=== PATIENT | male | born 1965 | race Caucasian/White ===

== ENCOUNTER 2016-08-19 18:48 | Emergency (ER) | payer SELFPAY ==
[2016-08-19 18:53] VITALS: BP 147/85; BMI 31.8
--- NOTE | 2016-08-19 20:26 | DR.CP ---
HPI - Time Seen Time seen: 20:17 - PCP Primary Care Physician: PAMELA LEAL - Complaint Chief Complaint Doctor Comments: Patient is complaining of xiphoid chest pain for the past three days that comes and goes. He thought he was having an anxiety attack so he took Clonazepam 0.5mg but it did not do anything so he took another pill an hour later and it seem to help. States he has a brain tumor that was discovered about a year ago and he was waiting to have brain surgery at [place] when he started having right leg pain and they found out that he had a blood clot in his right leg. States he is taking Eliquis 5mg po bid. He denies tobacco, alcohol or drug usage. He has had periods of nausea and states he has diarrhea all the time since the took out his gall bladder. He has had decreased appetite. He denies nausea or vomiting. Chief Complaint:: MID STERNAL CHEST PAIN COMES AND GOES WITH NAUSEA, NO RADIATION OF PAIN FOR THE LAST 3 DAYS. SEEN PAMELA ON SUNDAY, PT STATES HE HAS BEEN LOOSING WT (50 LBS) AND IS NOT TRYING. CHEST SORENESS WITH PALPITATING. - Reviewed Nurses Notes Review: Yes - Source History Provided: Patient - Mode of Arrival Mode of Arrival: Ambulatory - Timing Onset of Chief Complaint: 08/16/16 Came on: Gradually Pain: Present Now - Duration Duration: Intermittent How lon Duration: Days - Location Location of Chest Pain: Chest Chest Pain Radiation Location: None - Context Onset: At rest Cardiac Risk Factors: HTN PE Risk Factors: None History of: None Prehospital Care: None - Quality Quality: Sharp, Squeezing - Severity Severity: Mild - Associated Signs and Symptoms Associated Signs and Symptoms: Nausea/Vomiting PMH - PMH Past Medical History: Yes Past Medical History: Anxiety, Diabetes, Hypertension, Hypothyroidism Past Surgical History: Yes Surgical History: Abdominal Surgery, Cholecystectomy, Thyroidectomy, Other Past Surgical History Comment: BRAIN TUMOR. BLOOD CLOTS - Family History History of Family Medical Conditions: Yes Family Medical History: Diabetes Mellitus, Cancer, [place], Coronary Artery Disease, Heart Failure, Sudden Cardiac , Hypertension - Social History Does patient currently use any type of tobacco product: No Have you used tobacco products in the last 12 months: No Type of Tobacco Use: None Alcohol Use: None Do you use any recreational Drugs:: No Lives Where: Home - infectious screening Have you traveled outside the country in the last 6 months?: No Isolation: Standard ROS - Review of Systems Constitutional: No Symptoms Reported, Fatigue, Loss of Appetite. negative: See HPI, Chills, Diaphoresis, Fever, Malaise, Weakness, Irritable, Other Eyes: negative: No Symptoms Reported, See HPI, Eye Pain, Blurred Vision, Tearing , Discharge, Photophobia, Diplopia, Other ENTM: negative: No Symptoms Reported, See HPI, Ear Pain, Ear Discharge, Pulling on Ears, Hearing Loss, Nose Pain, Nose Discharge, Epistaxis, Nose Congestion, Mouth Pain, Mouth Swelling, Loose Teeth, Drooling, Throat Pain, Throat Swelling , Ear Foreign Body Respiratoy: negative: No Symptoms Reported, See HPI, Productive Cough, Non- Productive Cough, Moist Cough, Dry Cough, Hacking Cough, Barking Cough, Brassy Cough, Orthopnea, Short of Breath, Stridor, Wheezing, Hemoptysis, Other Cardiovascular: Chest Pain, Palpitations. negative: No Symptoms Reported, See HPI, Edema, Syncope, Cyanosis, Skin Mottling, Other Gastrointestinal/Abdominal: No Symptoms Reported, Nausea, Vomiting Genitourinary: No Symptoms Reported. negative: See HPI, Discharge, Dysuria, Frequency, Hematuria, Pain, Bleeding, Other Neurological: No Symptoms Reported, Emotional Problems. negative: Depressed Musculoskeletal: No Symptoms Reported Integumentary: No Symptoms Reported Hematologic/Lymphatic: No Symptoms Reported Endocrine: No Symptoms Reported, Intolerance to Cold, Decreased Appetite Psychiatric: No Symptoms Reported, Anxiety PE - Vitals Vitals: Temperature 98.2 F Pulse Rate 87 Respiratory Rate 16 Blood Pressure [Right Arm] 133/85 Blood Pressure 147/85 O2 Sat by Pulse Oximetry 96 ROR - Labs Reviewed Laboratory Results Reviewed?: Yes (All labs and x-ray results reviewed and discussed with patient) Result Diagrams: 08/19/16 20:30 08/19/16 20:30 Laboratory: WBC 6.2 X10^3/uL (3.6-10.0) 08/19/16 20:30 RBC 4.76 X10^6/uL (4.7-6.0) 08/19/16 20:30 Hgb 13.4 g/dL (13.5-18.0) L 08/19/16 20:30 Hct 38.7 % (42.0-54.0) L 08/19/16 20:30 MCV 81.3 fL (80.0-100.0) 08/19/16 20: MCH 28.2 pg (27.0-34.0) 08/19/16 20: MCHC 34.7 g/dL (33.0-35.0) 08/19/16 20: RDW 13.5 % (11.6-16.5) 08/19/16 20: Plt Count 191 X10^3/uL (150.0-450.0) 08/19/16 20: MPV 7.3 fL (7.4-11.0) L 08/19/16 20: Neut % 63.3 % (42.0-75.0) 08/19/16: Lymph % 27.1 % (21.0-51.0) 08/19/16 20: [place] % 6.7 % (0.0-13.0) 08/19/16 20: Eos % 1.7 % (0.9-2.9) 08/19/16 20: Baso % 1.2 % (0.2-1.0) H 08/19/16 20: Neut # 4.0 x10^3/uL (2.2-4.8) 08/19/16 20: Lymph # 1.7 X10^3/uL (1.3-2.9) 08/19/16 20:30 [place] # 0.4 x10^3/uL (0.3-0.8) 08/19/16 20: Eos # 0.1 x10^3/uL (0.0-0.2) 08/19/16 20: Baso # 0.1 X10^3/uL (0.0-0.1) 08/19/16 20: Absolute Nucleated RBC 0.0 /100WBC 08/19/16 20: INR Target Range - 08/19/16 20: INR 1.11 (0.8-1.3) 08/19/16 20:30 PTT 28.9 SECONDS (22.9-36.5) 08/19/16 20: PTT Comment - 08/19/16 20: Sodium 142 mmol/L (136-145) 08/19/16 20:30 Corrected Sodium TNP 08/19/16 20:30 Potassium 3.5 mmol/L (3.5-5.1) 08/19/16 20:30 Chloride 108 mmol/L (98-107) H 08/19/16 20:30 Carbon Dioxide 25.7 mmol/L (21-32) 08/19/16 20:30 BUN 15 mg/dL (7-18) 08/19/16 20:30 Creatinine 1.26 mg/dL (0.70-1.30) 08/19/16 20:30 Est GFR (MDRD) Af Amer > 60 (>60) 08/19/16 20:30 Est GFR (MDRD) Non-Af > 60 (>60) 08/19/16 20:30 Glucose 100 mg/dL (65-99) H 08/19/16 20:30 Calcium 8.7 mg/dL (8.5-10.1) 08/19/16 20:30 Corrected Calcium TNP 08/19/16 20:30 Magnesium 2.0 mg/dL (1.7-2.9) 08/19/16 20:30 Total Bilirubin 0.40 mg/dL (0.2-1.0) 08/19/16 20:30 AST 30 Units/L (15-37) 08/19/16 20:30 ALT 65 Units/L (12-78) 08/19/16 20:30 Alkaline Phosphatase 104 Units/L (46-116) 08/19/16 20:30 Creatine Kinase 124 Units/L (39-308) 08/19/16 20:30 CK-MB (CK-2) < 1.0 ng/mL (0-4.0) 08/19/16 20:30 CK/CKMB % Calc 0.8 % (<4) 08/19/16 20:30 Troponin I < 0.02 ng/mL (0-1.5) 08/19/16 20:30 Total Protein 7.1 g/dL (6.4-8.2) 08/19/16 20:30 Albumin 3.6 g/dL (3.4-5.0) 08/19/16 20:30 Globulin 3.5 g/dL (2.5-4.5) 08/19/16 20:30 Albumin/Globulin Ratio 1.0 Ratio (1.1-2.1) L 08/19/16 20:30 H. pylori IgG Antibody Positive (NEGATIVE) A 08/19/16 20:30 - XRAY XRAY Interpreted by: Radiologist (CXR: Old right rib fracture 3 and 4th ribs. No acuate abnormality.) - EKG Rate: 75 [place]: Normal Rhythm: NSR Block: None Hypertrophy: None ST: Nonsp - Diagnosis Discharge Problem: Helicobacter positive gastritis, COPD (chronic obstructive pulmonary disease), old rib fracture 3 and 4 right Chest pain Qualifiers: Chest pain type: unspecified Qualified Code(s): R07.9 - Chest pain, unspecified - Discharge Plan Disposition: HOME, SELF-CARE Condition: Stable Prescriptions: Bismuth Subsalicylate [Pepto-Bismol] 524 mg PO QID PRN 14 Days PRN Reason: Metronidazole [FLAGYL 250 MG *] 250 mg PO TID PRN #42 tab PRN Reason: Ranitidine HCl [ZANTAC TAB 150 MG *] 150 mg PO BID #60 tab Tetracycline HCl 500 mg PO BID PRN #28 capsule PRN Reason: - Follow ups/Referrals Follow ups/Referrals: PAMELA LEAL [Primary Care Provider] - 3 days - Instructions Instructions: Nonspecific Chest Pain, Gastritis, Adult, Helicobacter Pylori Antibodies Test, Rib Fracture, [id number]
[2016-08-19 20:37] LABS: BASOPHILS # (AUTO) 0.1 X10^3/uL (0.0-0.1); BASOPHILS % (AUTO) 1.2 % (0.2-1.0); EOSINOPHILS # (AUTO) 0.1 x10^3/uL (0.0-0.2); EOSINOPHILS % (AUTO) 1.7 % (0.9-2.9); HEMATOCRIT 38.7 % (42.0-54.0); HEMOGLOBIN 13.4 g/dL (13.5-18.0); LYMPHOCYTES # (AUTO) 1.7 X10^3/uL (1.3-2.9); LYMPHOCYTES % (AUTO) 27.1 % (21.0-51.0); MEAN CORPUSCULAR HEMOGLOBIN 28.2 pg (27.0-34.0); MEAN CORPUSCULAR HGB CONC 34.7 g/dL (33.0-35.0); MEAN CORPUSCULAR VOLUME 81.3 fL (80.0-100.0); MEAN PLATELET VOLUME 7.3 fL (7.4-11.0); MONOCYTES # (AUTO) 0.4 x10^3/uL (0.3-0.8); MONOCYTES % (AUTO) 6.7 % (0.0-13.0); NEUTROPHILS % (AUTO) 63.3 % (42.0-75.0); PLATELET COUNT 191 X10^3/uL (150.0-450.0); RED BLOOD COUNT 4.76 X10^6/uL (4.7-6.0); RED CELL DISTRIBUTION WIDTH 13.5 % (11.6-16.5); WHITE BLOOD COUNT 6.2 X10^3/uL (3.6-10.0)
[2016-08-19 20:54] LABS: BLOOD UREA NITROGEN 15 mg/dL (7-18); CALCIUM 8.7 mg/dL (8.5-10.1); CARBON DIOXIDE 25.7 mmol/L (21-32); CHLORIDE 108 mmol/L (98-107); CREATININE 1.26 mg/dL (0.70-1.30); GLUCOSE 100 mg/dL (65-99); SODIUM 142 mmol/L (136-145); TROPONIN I < 0.02 ng/mL (0-1.5); eGFR BLACK RACES > 60 (>60); eGFR NON BLACK RACES > 60 (>60)
[2016-08-19 20:58] LABS: ALANINE AMINOTRANSFERASE 65 Units/L (12-78); ALBUMIN 3.6 g/dL (3.4-5.0); ALKALINE PHOSPHATASE 104 Units/L (46-116); ASPARTATE AMINO TRANSFERASE 30 Units/L (15-37); CREATINE KINASE 124 Units/L (39-308); CREATINE KINASE MB < 1.0 ng/mL (0-4.0); TOTAL PROTEIN 7.1 g/dL (6.4-8.2)
[2016-08-19] MEDS ORDERED: NS 1000 ML 1,000 ML IV SCH (21:00)
[2016-08-19 21:01] LABS: CKMB % 0.8 % (<4)
--- NOTE | 2016-08-19 21:03 | RAD ---
EXAM: Chest X-ray INDICATION: Chest pain COMPARISION: No prior TECHNIQUE: AP, single view FINDINGS: The lungs are clear in the lung volumes are within normal limits. No pleural effusion or pneumothora x. The cardiac silhouette and mediastinum are normal. Old rib fractures seen posteriorly on the rig ht at ribs 3 and 4. IMPRESSION: Old right rib fractures noted above. No acute abnormality. Reported By:
[2016-08-19] MEDS ORDERED: PROTONIX TAB 40 MG PO ONE ×2 (22:24→22:33)
[2016-08-19] MEDS ORDERED: VIBRAMYCIN PO ONE ×2 (22:25→22:33)
[2016-08-19] MEDS ORDERED: FLAGYL TAB 250 MG PO ONE ×2 (22:25→22:33)
== END 2016-08-19 22:35 | disposition home or self-care (01) ==
LOC: ER 18:58
DX: S22.41XA Multiple fractures of ribs, right side, initial encounter for closed fracture (principal); J44.9 Chronic obstructive pulmonary disease, unspecified; B96.81 Helicobacter pylori [H. pylori] as the cause of diseases classified elsewhere; R07.89 Other chest pain; Y33.XXXA Other specified events, undetermined intent, initial encounter
CPT/HCPCS: 36415; 71010; 80053; 82550; 82553; 83735; 84484; 85025; 85610; 85730; 86677; 93005; 93010; 99283